=== PATIENT | male | born 1960 | race Caucasian/White ===

== ENCOUNTER 2016-09-02 10:59 | Outpatient (CLI) | payer BC ==
--- NOTE | 2016-09-02 13:09 | RAD ---
THREE VIEWS THORACIC SPINE SERIES: Indication: Chronic back pain. FINDINGS: Multilevel degenerative change of the thoracic spine is present. There is mild kyphosis. No evidence of acute compression fracture or significant subluxation identified. IMPRESSION: Degenerative changes of the thoracic spine without acute osseous abnormality. POS: DEBORAH
--- NOTE | 2016-09-02 13:34 | RAD ---
LUMBAR SPINE FOUR VIEWS: History: Back pain for several years. Comparison: None. FINDINGS: There are five non rib bearing lumbar type vertebrae. Mild facet arthrosis is present on the right a t L5-S1 and L4-5. No acute fracture is present. There is grade I L4-5 retrolisthesis, 2-3 mm. There is anterior disc osteophyte complex and endplate sclerosis at T11-12. Small anterior disc osteophyte complex is present at L3-4. There is radiopaque debris over the abdomen. IMPRESSION: 1. No acute abnormality. 2. Mild facet arthropathy on the right at L4-5 and L5-S1. 3. Grade I retrolisthesis of 2-3 mm of L4 over L5. 4. Lower thoracic spine spondylosis with endplate sclerosis and osteophyte formation. 5. MRI may be beneficial in this patient. POS: DEBORAH
== END 2016-09-02 11:00 | disposition home or self-care (01) ==
LOC: MADRAD 10:59
PROVIDERS: ATTEND Family Medicine
DX: M54.5 Low back pain (principal); M43.16 Spondylolisthesis, lumbar region; M47.814 Spondylosis without myelopathy or radiculopathy, thoracic region
CPT/HCPCS: 72072; 72110

== ENCOUNTER 2016-09-26 08:06 | Outpatient (CLI) | payer BC ==
[2016-09-26 08:34] LABS: #Basophils 0.1 thou/uL (0.0-0.2); #Eosinphils 0.3 thou/uL (0.0-0.7); #Lymphocytes 2.3 thou/uL (1.20-3.40); #Monocytes 0.8 thou/uL (0.11-0.59); #Neutrophils 3.9 thou/uL (1.40-6.50); %Basophils 1.8 % (0.0-1.0); %Eosinophils 3.4 % (0.0-10.0); %Lymphocytes 30.6 % (21.0-51.0); %Neutrophils 53.3 % (42.0-75.0); Hemoglobin 15.3 g/dL (14.0-18.0); Mean Corpuscular HGB CONC 33.9 g/dL (32.0-36.0); Mean Corpuscular Hemoglobin 30.1 pg (27.0-31.0); Mean Corpuscular Volume 88.8 fl (80.0-94.0); Mean Platelet Volume 8.1 fL (7.4-10.4); Platelet Count 351 thou/uL (130-400); Red Blood Cell (RBC) Count 5.08 mill/uL (4.70-6.10); White Blood Cell (WBC) Count 7.4 thou/uL (4.8-10.8)
[2016-09-26 08:38] LABS: Hemoglobin A1c 7.4 % (4.0-6.0)
[2016-09-26 08:56] LABS: ALT (SGPT) 23 U/L (8-55); AST (SGOT) 16 U/L (5-34); Albumin 4.1 g/dL (3.5-5.0); Alkaline Phosphatase 79 U/L (40-150); Anion Gap 13 mmol/L (10-20); BUN (Urea Nitrogen) 19 mg/dL (8.4-25.7); Bilirubin, Total 0.7 mg/dL (0.2-1.2); Calc. Creatinine Clearance 0 mL/min (70-130); Carbon Dioxide 27 mmol/L (22-29); Cardiac Risk 3.9 (Less than 4.5); Chloride 105 mmol/L (98-107); Cholesterol 154 mg/dl (< 200 Desired); Estimated GFR-MDRD 79; Globulin 3.6 g/dL (2.4-3.5); Glucose 91 mg/dL (70-105); HDL Cholesterol 39 mg/dL (>60 Neg Risk); LDL Cholesterol, Calculated 92 mg/dL; Potassium 4.3 mmol/L (3.5-5.1); Protein, Total 7.7 g/dL (6.0-8.3); Sodium 141 mmol/L (136-145); Triglycerides 114 mg/dL (Less than 150)
[2016-09-26 10:15] LABS: Thyroid Stimulating Hormone 1.9908 uIU/mL (0.35-4.94); Vitamin D, 25 Hydroxy 42.3 ng/ml (> 30.0)
[2016-09-26 17:55] LABS: Creatinine, Urine 228.76 mg/dL (63-166); Microalbumin Urine 1.3 mg/dL (0.5-50.0); Microalbumin/Creat Ratio 5.7 mg/g (Less than 30)
== END 2016-09-26 08:07 | disposition home or self-care (01) ==
LOC: MADLABBHPM 08:06
PROVIDERS: ATTEND Family Medicine
DX: E78.5 Hyperlipidemia, unspecified (principal); E11.9 Type 2 diabetes mellitus without complications
CPT/HCPCS: 36415; 80053; 80061; 82043; 82306; 83036; 84443; 85025

== ENCOUNTER 2021-06-02 10:58 | Outpatient (CLI) | payer BC | END 2021-06-02 10:59 | disposition home or self-care (01) | LOC: MADRAD 10:58 | PROVIDERS: ATTEND Family Medicine | DX: M54.41 Lumbago with sciatica, right side (principal); M54.42 Lumbago with sciatica, left side; M47.816 Spondylosis without myelopathy or radiculopathy, lumbar region | CPT/HCPCS: 72100 ==

== ENCOUNTER 2022-03-10 11:47 | Outpatient (CLI) | payer BC ==
[2022-03-10 12:55] LABS: #Basophils 0.1 thou/uL (0.0-0.2); #Eosinphils 0.2 thou/uL (0.0-0.7); #Monocytes 0.7 thou/uL (0.11-0.59); %Basophils 1.7 % (0.0-1.0); %Eosinophils 2.4 % (0.0-10.0); %Lymphocytes 28.6 % (21.0-51.0); %Monocytes 9.5 % (0.0-10.0); %Neutrophils 57.9 % (42.0-75.0); Hemoglobin 14.1 g/dL (14.0-18.0); Mean Corpuscular HGB CONC 32.7 g/dL (32.0-36.0); Mean Corpuscular Hemoglobin 29.8 pg (27.0-31.0); Mean Corpuscular Volume 91.1 fl (78.0-98.0); Mean Platelet Volume 8.3 fL (7.4-10.4); Platelet Count 355 10x3/uL (130-400); RBC Distribution Width 11.4 % (11.5-14.5); Red Blood Cell (RBC) Count 4.73 mill/uL (4.70-6.10); White Blood Cell (WBC) Count 6.9 10x3/uL (4.8-10.8)
[2022-03-10 13:09] LABS: ALT (SGPT) 18 U/L (8-55); AST (SGOT) 18 U/L (5-34); Albumin 4.1 g/dL (3.4-4.8); Alkaline Phosphatase 73 U/L (40-110); Anion Gap 11 mmol/L (10-20); BUN (Urea Nitrogen) 17 mg/dL (8.4-25.7); Bilirubin, Total 0.6 mg/dL (0.2-1.2); Calc. Creatinine Clearance 0 mL/min (70-130); Calcium 9.3 mg/dL (7.8-10.44); Carbon Dioxide 29 mmol/L (23-31); Chloride 104 mmol/L (98-107); Estimated GFR 82; Globulin 3.4 g/dL (2.4-3.5); Glucose 198 mg/dL (80-115); Potassium 4.4 mmol/L (3.5-5.1); Protein, Total 7.5 g/dL (5.8-8.1); Sodium 140 mmol/L (136-145)
== END 2022-03-10 11:48 | disposition home or self-care (01) ==
LOC: MADLAB 11:47
PROVIDERS: ATTEND Nurse Practitioner Family
DX: M54.51 Vertebrogenic low back pain (principal)
CPT/HCPCS: 36415; 80053; 85025; 93005; 93010

== ENCOUNTER 2022-10-18 08:09 | Outpatient (CLI) | payer BC | END 2022-10-18 08:10 | disposition home or self-care (01) | LOC: MADULT 08:09 | PROVIDERS: ATTEND Family Medicine | DX: K40.90 Unilateral inguinal hernia, without obstruction or gangrene, not specified as recurrent (principal); N43.3 Hydrocele, unspecified | CPT/HCPCS: 76870; 93976 ==